=== PATIENT | male | born 1990 | race Caucasian/White ===

== ENCOUNTER → 2019-09-02 | Outpatient (CLI) | payer SELFPAY ==
[~2019-09-02] MED LIST: CEPHALEXIN500 M1 PO; NO HOME MEDICATIONS
[2019-09-02 17:36] LABS: ALBUMIN 5.2 gm/dL (3.5-5.0); BILIRUBIN,TOTAL 0.9 mg/dL (0.0-1.0); CALCIUM 9.9 mg/dL (8.4-10.2); CREATININE, serum 1.09 (0.66-1.25)
[2019-09-02 18:06] LABS: THYROID STIMULATING HORMONE 1.72 uIU/mL (0.465-4.680)
== END ==
LOC: COL.LAB 17:02
DX: F41.9 Anxiety disorder, unspecified (principal)

== ENCOUNTER 2020-02-16 22:40 | Emergency (ER) | payer SELFPAY ==
[~2020-02-16] VITALS: Ht 170.2 cm; Wt 82.7 kg
[2020-02-16 22:53] VITALS: TEMP 98.3
[2020-02-16 23:06] LABS: BASO # 0.1 (0.0-0.2); BASO % 0.7 % (0.0-2.0); EOS # 0.3 (0.0-0.7); EOS % 2.2 % (0-4.0); GRAN # 8.1 (1.4-6.5); GRAN % 59.9 % (42.2-75.2); HEMATOCRIT 43.7 % (42.0-52.0); HEMOGLOBIN 15.3 g/dl (13.5-18.0); LYMPH % 29.9 % (20.0-51.0); MEAN CELL VOLUME 84 fl (80.0-100.0); MEAN CORPUSCULAR HEMOGLOBIN 29 pg (27.0-31.0); MEAN CORPUSCULAR HGB CONC 35 g/dl (33.0-37.0); MEAN PLATELET VOLUME 10.6 fl (7.4-10.4); MONO # 0.9 (0.1-0.6); MONO % 6.7 % (1.7-9.3); PLATELET COUNT 268 K/mm3 (130-400); REDCELL DISTRIBUTION WIDTH-CV 12.7 % (11.5-14.5)
[2020-02-16 23:19] LABS: ALANINE AMINOTRANSFERASE 23 U/L (4-49); ALBUMIN 4.9 gm/dL (3.5-5.0); ALKALINE PHOSPHATASE 68 U/L (50-136); ANION GAP 12 mmol/L (7-16); AST,SGOT 25 U/L (15-37); BILIRUBIN,TOTAL 0.5 mg/dL (0.0-1.0); BLOOD UREA NITROGEN 18 mg/dL (9-20); CALCIUM 9.7 mg/dL (8.4-10.2); CARBON DIOXIDE 24 mmol/L (22-30); CHLORIDE 104 mmol/L (98-107); CREATININE, serum 1.04 (0.66-1.25); GLUCOSE 124 mg/dL (74-106); LIPASE 58 U/L (23-300); POTASSIUM 3.9 mmol/L (3.4-5.0); SODIUM 140 mmol/L (137-145); TOTAL PROTEIN 8.1 gm/dL (6.4-8.2)
[2020-02-16 23:24] LABS: C-REACTIVE PROTEIN < 0.5 mg/dL (0.0-0.9)
[2020-02-17 00:58] LABS: COLLECTION METHOD CLEAN CATCH
[2020-02-17 01:03] LABS: MUCOUS Present /lpf; PH 7 (5-8); SQUAMOUS EPITHELIAL None Seen /hpf; URINE APPEARANCE Clear; URINE BACTERIA None Seen /hpf; URINE BILIRUBIN Negative (NEGATIVE); URINE BLOOD Negative (NEGATIVE); URINE COLOR Straw; URINE GLUCOSE Negative (NEGATIVE); URINE KETONE Negative (NEGATIVE); URINE LEUKOCYTE ESTERASE Negative (NEGATIVE); URINE NITRATE Negative (NEGATIVE); URINE PROTEIN(semi-quant) Negative (NEGATIVE); URINE RBC 0-2 /hpf; URINE UROBILINOGEN Negative (NEGATIVE)
[2020-02-17] MEDS ORDERED: PHENERGAN 25 TA25 MG PO (02:13)
[2020-02-17 02:28] VITALS: BP 132/88; PULSE 96
== END 2020-02-17 02:28 | disposition home or self-care (01) ==
LOC: COL.ER 22:40
PROVIDERS: Family Medicine
DX: R10.13 Epigastric pain (principal); R11.2 Nausea with vomiting, unspecified
CPT/HCPCS: J1170; J2405; J2550; J7120; Q9967

== ENCOUNTER → 2021-12-24 | Outpatient (CLI) | payer SELFPAY ==
[~2021-12-24] MED LIST changes: +PHENERGAN 25 TA25 MG PO
== END ==
LOC: COL.RAD 11:35
DX: S63.611A Unspecified sprain of left index finger, initial encounter (principal); W23.0XXA Caught, crushed, jammed, or pinched between moving objects, initial encounter